=== PATIENT | male | born 1990 | race Caucasian/White ===

== ENCOUNTER 2021-01-25 10:43 | Emergency (ER) | payer OTHER ==
[~2021-01-25] VITALS: Ht 180.3 cm; Wt 149.7 kg
[~2021-01-25 10:43] MED LIST: CLEOCIN HCL300 MG PO
[2021-01-25 11:46] LABS: HEMOGLOBIN 14.7 gm/dl (14.0-17.5); RED BLOOD COUNT 5.3 M/UL (4.20-5.50); WHITE BLOOD COUNT 7.5 K/UL (4.5-11.0)
[2021-01-25 12:14] LABS: BUN/CREATININE RATIO 12 (0-10)
[2021-01-25] MEDS ORDERED: PREDNISONE 50 M50 MG PO (15:56)
== END 2021-01-25 16:58 | disposition home or self-care (01) ==
LOC: ER1 10:43
PROVIDERS: Student in an Organized Health Care Education/Training Program
DX: Z23 Encounter for immunization (principal); U07.1 COVID-19; F17.210 Nicotine dependence, cigarettes, uncomplicated
CPT/HCPCS: 36600; 71045; 80053; 82550; 82553; 82803; 83874; 84484; 85025; 85379; 93005; 96374; 99285; J1100; M0243; Q9967; U0002

== ENCOUNTER 2021-08-24 21:20 | Emergency (ER) | payer OTHER ==
[~2021-08-24 21:20] MED LIST changes: +PREDNISONE 50 M50 MG PO
[2021-08-24 22:59] LABS: HEMOGLOBIN 14.5 gm/dl (14.0-17.5); RED BLOOD COUNT 5.23 M/UL (4.20-5.50)
[2021-08-24 23:18] LABS: BUN/CREATININE RATIO 9 (0-10)
== END 2021-08-25 01:27 | disposition home or self-care (01) ==
LOC: ER1 21:20
PROVIDERS: Physician Assistant
DX: R10.9 Unspecified abdominal pain (principal); R10.812 Left upper quadrant abdominal tenderness; J45.909 Unspecified asthma, uncomplicated
CPT/HCPCS: 80053; 81001; 83690; 85025; 96372; 99284; J1885